=== PATIENT | male | born 1970 ===

== ENCOUNTER 2016-11-05 22:05 | Emergency (ER) | payer BC ==
--- NOTE | 2016-11-05 22:11 | PDOC ---
History of Present Illness - General Chief Complaint: Injury Stated Complaint: WEIGHT FELL ON LEFT HAND Time Seen by Provider: 11/05/16 22:08 History Source: Patient Exam Limitations: No Limitations - History of Present Illness Initial Comments: 46 yo M presents with L hand pain after he dropped a dumbell on it. Injury occurred just prior to arrival, now with pain to the hand and deformity of the 5th finger. Pain is moderate, worse with movement of the hand. No other injuries. Past History - Past Medical History Allergies/Adverse Reactions: Allergies Allergy/AdvReac Type Severity Reaction Status Date / Time No Known Allergies Allergy Verified 11/05/16 22:06 Home Medications: Ambulatory Orders NK [No Known Home Medication] 11/05/16 Review of Systems - Review of Systems Able to Perform ROS?: Yes Comments:: GENERAL/CONSTITUTIONAL: No fever or chills. No weakness. MUSCULOSKELETAL: +L hand pain and swelling. No neck or back pain. SKIN: No rash NEUROLOGIC: No headache, vertigo, loss of consciousness, or change in strength/ sensation. *Physical Exam - Physical Exam Comments: GENERAL: Awake, alert, and fully oriented, in no acute distress HEAD: No signs of trauma EXTREMITIES: L hand with swelling over the 5th metacarpal, and slight deviation of the 5th finger toward the 4th finger. Able to move the finger. Distal N/V intact. Cap refill <2s. Remainder of extremities with normal range of motion, no edema. No clubbing or cyanosis. No cords, erythema, or tenderness NEUROLOGICAL: Cranial nerves II through XII grossly intact. Normal speech, normal gait SKIN: Warm, Dry, normal turgor, no rashes or lesions noted. Procedures - Splinting Splint Location: Right: Hand Hand-Made Type: orthoglass Splint Type: Yes: Ulnar (ulnar gutter) Post-Proc Neuro Vasc Exam: normal Devan Bandage: yes Sling: Yes Complications: No *DC/Admit/Observation/Transfer Diagnosis at time of Disposition: Closed fracture of fifth metacarpal bone Hand fracture, left Qualifiers: Encounter type: initial encounter Fracture type: closed Qualified Code(s): S62.92XA - Unspecified fracture of left wrist and hand, initial encounter for closed fracture - Discharge Dispostion Disposition: HOME Condition at time of disposition: Stable Admit: No - Referrals Referrals: Bala Sandra MD [Staff Physician] -
[2016-11-05 22:13] VITALS: BP 137/84; PULSE 87; TEMP 98.8; BMI 28.5
== END 2016-11-05 23:26 | disposition home or self-care (01) ==
LOC: FER 22:05
PROC: 2W3FX1Z Immobilization of Left Hand using Splint (ICD-10-PCS; principal; 2016-11-05)
DX: S62.307A Unspecified fracture of fifth metacarpal bone, left hand, initial encounter for closed fracture (principal); W20.8XXA Other cause of strike by thrown, projected or falling object, initial encounter; Y93.9 Activity, unspecified; Y92.39 Other specified sports and athletic area as the place of occurrence of the external cause
CPT/HCPCS: 73130-TC-LT; 99281-25